=== PATIENT | male | born 1980 | race Caucasian/White ===

== ENCOUNTER 2023-04-07 09:22 | Emergency (ER) | payer MEDICAID ==
[~2023-04-07] VITALS: Ht 193 cm; Wt 72.6 kg
[2023-04-07] MEDS ORDERED: KETOROLAC TROMETHAMINE 15 MG/ML VIAL ONE (09:36)
[2023-04-07] MEDS ORDERED: ACETAMINOPHEN 325 MG TABLET ONE (09:36)
[2023-04-07] MEDS: ACETAMINOPHEN 325 MG TABLET PO ONE (10:06)
[2023-04-07] MEDS: KETOROLAC TROMETHAMINE 15 MG/ML VIAL IM ONE (10:06)
[2023-04-07 10:07] VITALS: BP 128/63; TEMP 98.1; O2SAT 100
== END 2023-04-07 10:08 | disposition left against medical advice (07) ==
LOC: ER 09:22
DX: S93.492A Sprain of other ligament of left ankle, initial encounter (principal); M25.562 Pain in left knee; M25.561 Pain in right knee; Z60.2 Problems related to living alone; Z88.5 Allergy status to narcotic agent; W11.XXXA Fall on and from ladder, initial encounter; Y93.89 Activity, other specified; Y92.89 Other specified places as the place of occurrence of the external cause; Y99.8 Other external cause status
CPT/HCPCS: 73564-TC; 73610-TC; J1885